=== PATIENT | male | born 1970 | race Caucasian/White ===

== ENCOUNTER → 2016-11-15 | Outpatient (RCR) ==
[2016-07-14 10:50] VITALS: BMI 38.6
--- NOTE | 2016-11-10 11:23 | RS.OPPTEV2 ---
Date of Note: 11/10/16 Visit #: 1 Date of Evaluation: 11/10/16 Payer Source: Workman's Comp Date of Onset/Injury/Change in Status: 10/06/16 Surgery Performed?: Yes Procedure Performed: Biceps tendon repair Treatment Diagnosis: Left elbow pain, Distal biceps tendon partial tear History of Condition/Mechanism of Injury:: Patient reports injurying left arm while moving therapy equipment on 07/14/16. He had to have the distal bicep tendon repaired which was performed 10/06/2016. He was placed in a sling for 4 days after surgery and has only been allowed to perform left elbow flexion. He is having some pain and edema of the left elbow and forearm. Pain is worse in the evenings. His sleep has been only 2-3 hrs per night due to pain in the left forearm. Prior Level of Function.....Patient was independent with: ADL's, Self Care, Work /Vocation, Caregiving, Ambulation/Mobility, Community Integration/Access Functional Limitations: Sleep, Self Care, ADL's, Reaching, Pushing, Pulling, Lifting, Carrying, Community Access/Integration Current Subjective/complaints:: Supination is the worst motion and the inability to sleep. 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 Smoking Status: Never smoker Hx Home Medications: Ibuprofen, Altace, Dyazide,Metformin, Pain Assessment - Pain Description Pain Location: Left elbow and forearm Pain Description: Sharp, Dull, Aching Current Pain Intensity: 1/10 Worst Pain Intensity: 6/10 Functional Outcome Measure UE Functional Index: 40 - G Codes & Severity Modifier G Codes & Modifier: NA Source of G Code score: NA Observation - Observation Inspection: Left antecubital incision healing with scab present and redness around the scab. Handedness: Right - Left Elbow ROM Comments: Left elbow AROM WNL. Supination is slightly limited by pain and tightness. - Left Elbow Strength Left Elbow Extension: 4 Good Left Elbow Flexion: 4 Good Left Forearm Pronation: 4- Good- Left Forearm Supination: 3 Fair Comments: Pain with testing of supination. Resistance was limited. Asic Engineer Strength Left Hand Asic Engineer Strength: 30# Right Hand Asic Engineer Strength: 90# Palpation Palpation Findings: Tenderness (Left volar surface of forearm) Sensation - Sensation Left Upper Extremity: Impaired (He has some numbness but he relates this to his neck which he has had for many yrs. He states his arms have periods of numbness form that situation and he sees no change since the tendon rupture.) Interventions - Exercise/Activities/Manual Therapy Exercises/Activities: Patient was began on yellow theraputty (soft) to be performed 2 minutes initially working up to 5 minutes. He performed several techniques today during PT and had no cramping with the activity. He was educated on signs and symptoms of overuse and instructed to stop if cramping occurs. He verbalized understanding. Manual Therapy: NA HOME EXERCISE PROGRAM: Theraputty exercises. - Charges Total Direct Minutes: 15 Total Treatment Time: 45 Procedures billed for this date of service:: PT Eval (Low) and ther ex Assessment Assessment: Left elbow and forearm pain, limited supination, decreased LUE strength. Patient Education: Education of diagnosis, Body/Joint mechanics, Home Exercise Program, Education of Plan of Care Rehab Potential: Good Short Term Goals Goal #1: Patient independent and compliant with basic HEP. Goal to be met by: 11/25/16 Progress towards Goal:: Progressing Goal #2: Left forearm to demonstrate no observable swelling. Goal to be met by: 11/25/16 Goal #3: Left tray service worker strength 25-30 lbs with minimal discomfort. Goal to be met by: 11/25/16 Goal #4: Left forearm supination WNLs w/o pain. Goal to be met by: 11/25/16 [facility]pc Goals Goal #1: Pt knows HEP and to continue with exercises after D/C from therapy. Goal to be met by: 12/09/16 Goal #2: Pt able to use left UE for all ADL's and functional activities without pain Goal to be met by: 12/09/16 Goal #3: Patient able to sleep w/o left UE pain. Goal to be met by: 12/09/16 Goal #4: Score on UE functional Index improved to 70/80. Goal to be met by: 12/09/16 Plan - Treatment to be Provided Procedures: Therapeutic Exercises, Therapeutic Activity, Manual Therapy, Massage , Patient Education Modalities: Electrical Stimulation, Ultrasound/Phonophoresis, Class IV Laser, Cryotherapy, Hot Packs - Treatment Plan Frequency: 2 X week Duration: 4 weeks ORDER # VISITS AND/OR THROUGH DATE: 12/09/2016 - Treatment Code (1) Decreased tray service worker strength of left hand Comments: M62.81 (2) Forearm pain Qualifiers: Laterality: left Qualified Description: Pain of left forearm Qualifier Code(s): (M79.632) Pain in left forearm
--- NOTE | 2016-11-15 10:05 | RS.OPPTDN ---
Subjective Date of Note: 11/15/16 Visit #: 2 Date of Evaluation: 11/10/16 Payer Source: Workman's Comp Treatment Diagnosis: Left elbow pain, Distal biceps tendon partial tear Current Subjective/complaints:: Reports the pain is a dull ache ,as opposed to sharp pain.He reports doing his HEP,using theraputty also. Pain Assessment - Pain Description Pain Location: Left elbow and forearm Pain Description: Dull, Aching Current Pain Intensity: 1-2/10 - Heat/Cryotherapy Treatment: Hot Pack (20 mins. prior to exercises) Interventions - Exercise/Activities/Manual Therapy Exercises/Activities: 30 mins. total ,including gentle stretches to wrist extensors/flexors,AROM of supination/pronation,isometrics for biceps. Total minutes of Exercise: 30 Manual Therapy: NA Total minutes of Manual Therapy: 0 HOME EXERCISE PROGRAM: Theraputty exercises. - Charges Total Direct Minutes: 30 Total Treatment Time: 50 Procedures billed for this date of service:: hp,ex 2 Assessment: Patient has functional ROM in the L UE,has stretch dsicomfort , especially with pronation/supination at end range.He has good return demo of HEP ,understands to avoid pain as he exercises. Patient Education: Education of diagnosis, Body/Joint mechanics, Home Exercise Program, Home Safety, Activity Modification, Education of Plan of Care Patient demonstrates compliance with HEP?: Yes Short Term Goals Goal #1: Patient independent and compliant with basic HEP. Goal to be met by: 11/25/16 Progress towards Goal:: Progressing Goal #2: Left forearm to demonstrate no observable swelling. Goal to be met by: 11/25/16 Progress towards Goal:: Progressing Goal #3: Left service center assistant strength 25-30 lbs with minimal discomfort. Goal to be met by: 11/25/16 Goal #4: Left forearm supination WNLs w/o pain. Goal to be met by: 11/25/16 [facility] Goals Goal #1: Pt knows HEP and to continue with exercises after D/C from therapy. Goal to be met by: 12/09/16 Goal #2: Pt able to use left UE for all ADL's and functional activities without pain Goal to be met by: 12/09/16 Goal #3: Patient able to sleep w/o left UE pain. Goal to be met by: 12/09/16 Goal #4: Score on UE functional Index improved to 70/80. Goal to be met by: 12/09/16 Plan PLAN OF CARE EXPIRES ON:: 12/09/16 ORDER # VISITS AND/OR THROUGH DATE: 12/09/2016 PLAN: Continue Plan of Care
== END ==
PROVIDERS: ATTEND Orthopaedic Surgery
DX: M79.632 Pain in left forearm (principal); M62.81 Muscle weakness (generalized); Z98.890 Other specified postprocedural states; Y99.0 Civilian activity done for income or pay

== ENCOUNTER 2016-12-08 09:00 | Outpatient (RCR) ==
[2016-07-14 10:50] VITALS: BMI 38.6
--- NOTE | 2016-11-22 09:00 | RS.OPPTDN ---
Subjective Date of Note: 11/17/16 Visit #: 3 Date of Evaluation: 11/10/16 Payer Source: Workman's Comp Treatment Diagnosis: Left elbow pain, Distal biceps tendon partial tear Current Subjective/complaints:: No c/o. Pain Assessment - Pain Description Pain Location: Left elbow and forearm Current Pain Intensity: 1-2/10 Interventions - Exercise/Activities/Manual Therapy Exercises/Activities: 30 mins. total ,including gentle stretches to wrist extensors/flexors,AROM of wrist flex/ext, and supination/pronation with 2# dumbbell.,isometrics for biceps. Total minutes of Exercise: 30 Manual Therapy: NA HOME EXERCISE PROGRAM: Theraputty exercises. - Charges Total Direct Minutes: 30 Total Treatment Time: 50 Procedures billed for this date of service:: hp,ex 2 Assessment: Patient tolerates exercises weel,with minimal pain at available end range of supination/pronation.He fatigues easily with eccentric motions while doing sup/pronation or wrist flexion/extension. Patient Education: Education of diagnosis, Body/Joint mechanics, Home Exercise Program, Home Safety, Activity Modification, Education of Plan of Care Patient demonstrates compliance with HEP?: Yes Short Term Goals Goal #1: Patient independent and compliant with basic HEP. Goal to be met by: 11/25/16 Progress towards Goal:: Progressing Goal #2: Left forearm to demonstrate no observable swelling. Goal to be met by: 11/25/16 Progress towards Goal:: Progressing Goal #3: Left new car get ready mechanic strength 25-30 lbs with minimal discomfort. Goal to be met by: 11/25/16 Goal #4: Left forearm supination WNLs w/o pain. Goal to be met by: 11/25/16 Progress towards Goal:: Progressing Substance Abuse Rn Goals Goal #1: Pt knows HEP and to continue with exercises after D/C from therapy. Goal to be met by: 12/09/16 Progress towards goal: Progressing Goal #2: Pt able to use left UE for all ADL's and functional activities without pain Goal to be met by: 12/09/16 Goal #3: Patient able to sleep w/o left UE pain. Goal to be met by: 12/09/16 Progress towards goal: Progressing Goal #4: Score on UE functional Index improved to 70/80. Goal to be met by: 12/09/16 Plan PLAN OF CARE EXPIRES ON:: 12/09/16 ORDER # VISITS AND/OR THROUGH DATE: 12/09/2016 PLAN: Continue Plan of Care
--- NOTE | 2016-11-22 09:00 | RS.CXNS ---
Date of scheduled appointment: 11/22/16 Type: Cancel Reason for Cancel/NS: Patient called ,is sick today (fever).
--- NOTE | 2016-11-24 11:15 | RS.CXNS ---
Date of scheduled appointment: 11/24/16 Type: Cancel Reason for Cancel/NS: Called,still sick.
--- NOTE | 2016-11-29 10:17 | RS.OPPTDN ---
Subjective Date of Note: 11/29/16 Visit #: 4 Date of Evaluation: 11/10/16 Payer Source: Workman's Comp Treatment Diagnosis: Left elbow pain, Distal biceps tendon partial tear Current Subjective/complaints:: Patient frustrated regarding how weak the L UE feels.Reminded patient he is 2 months post-op,he understands. Pain Assessment - Pain Description Pain Location: Left elbow and forearm Current Pain Intensity: 0 at rest,4 /10 after exercises - Heat/Cryotherapy Treatment: Hot Pack, Cryotherapy (Heat x 15 mins,before,cold x 10 mins. after exercises) Interventions - Exercise/Activities/Manual Therapy Exercises/Activities: 30 mins. total ,including gentle stretches to wrist extensors/flexors,AROM of wrist flex/ext, and supination/pronation with 3# dumbbell.,isometrics for biceps.Attempted 2 reps. of biceps curls with 3# ,but stopped due to discomfort,but not sharp pain. Manual Therapy: NA HOME EXERCISE PROGRAM: Theraputty exercises. - Charges Total Direct Minutes: 25 Total Treatment Time: 50 Procedures billed for this date of service:: hp,ex2,cp Assessment: Patient has pasive ROM WNL,but he fatigues very easily with exercises,has muscle tremors present with eccentric motions.Reminded patient he is only 2 months post-op,and still in the protective phase of his recovery.He si to see Dr. Neri tomorrow for follow-up,and we will treat according his recommendations. Patient Education: Education of diagnosis, Body/Joint mechanics, Home Exercise Program, Home Safety, Activity Modification, Education of Plan of Care Patient demonstrates compliance with HEP?: Yes Short Term Goals Goal #1: Patient independent and compliant with basic HEP. Goal to be met by: 11/25/16 Progress towards Goal:: Partially Met Goal #2: Left forearm to demonstrate no observable swelling. Goal to be met by: 11/25/16 Progress towards Goal:: Partially Met Goal #3: Left reprint sorter strength 25-30 lbs with minimal discomfort. Goal to be met by: 11/25/16 (25-30# with 2 attempts) Progress towards Goal:: Met Goal #4: Left forearm supination WNLs w/o pain. Goal to be met by: 11/25/16 Progress towards Goal:: Progressing Wood Chopper Goals Goal #1: Pt knows HEP and to continue with exercises after D/C from therapy. Goal to be met by: 12/09/16 Progress towards goal: Partially Met Goal #2: Pt able to use left UE for all ADL's and functional activities without pain Goal to be met by: 12/09/16 (weak and dull ache present) Progress towards goal: Progressing Goal #3: Patient able to sleep w/o left UE pain. Goal to be met by: 12/09/16 Progress towards goal: Progressing Goal #4: Score on UE functional Index improved to 70/80. Goal to be met by: 12/09/16 Plan PLAN OF CARE EXPIRES ON:: 12/09/16 ORDER # VISITS AND/OR THROUGH DATE: 12/09/2016 PLAN: Continue Plan of Care
--- NOTE | 2016-12-01 10:09 | RS.OPPTDN ---
Subjective Date of Note: 12/01/16 Visit #: 5 Date of Evaluation: 11/10/16 Payer Source: Workman's Comp Treatment Diagnosis: Left elbow pain, Distal biceps tendon partial tear Current Subjective/complaints:: Patient saw Dr. Neri ,yesterday and has orders to continue PT,progress as tolerated. Pain Assessment - Pain Description Pain Location: Left elbow and forearm Pain Description: Dull, Aching Current Pain Intensity: 0 at rest - Heat/Cryotherapy Treatment: Hot Pack (20 mins. prior to exercises) Interventions - Exercise/Activities/Manual Therapy Exercises/Activities: 25 mins. total ,including gentle stretches to wrist extensors/flexors,AROM of wrist flex/ext, and supination/pronation with 3# dumbbell.,isometrics for biceps. Biceps curls with 2# ,@ 3/15 ,then did one set of 15 reps. with 5 #. Total minutes of Exercise: 25 Manual Therapy: NA Total minutes of Manual Therapy: 0 HOME EXERCISE PROGRAM: Theraputty exercises.PAIN FREE AROM with no more than 5# for biceps curls,will progress as Dr. colbert. - Charges Total Direct Minutes: 25 Total Treatment Time: 45 Procedures billed for this date of service:: hp,ex 2 Assessment: Progressing well in all areas,less intensity and frequency of pain.Tolerates gradual increase with resistive exercises.He has good safety awareness. Patient Education: Education of diagnosis, Body/Joint mechanics, Home Exercise Program, Home Safety, Activity Modification, Education of Plan of Care Patient demonstrates compliance with HEP?: Yes Short Term Goals Goal #1: Patient independent and compliant with basic HEP. Goal to be met by: 11/25/16 Progress towards Goal:: Partially Met Goal #2: Left forearm to demonstrate no observable swelling. Goal to be met by: 11/25/16 Progress towards Goal:: Partially Met Goal #3: Left industrial hygiene technician strength 25-30 lbs with minimal discomfort. Goal to be met by: 11/25/16 (25-30# with 2 attempts) Progress towards Goal:: Met Goal #4: Left forearm supination WNLs w/o pain. Goal to be met by: 11/25/16 Progress towards Goal:: Progressing Stock Blender Goals Goal #1: Pt knows HEP and to continue with exercises after D/C from therapy. Goal to be met by: 12/09/16 Progress towards goal: Partially Met Goal #2: Pt able to use left UE for all ADL's and functional activities without pain Goal to be met by: 12/09/16 (weak and dull ache present) Progress towards goal: Progressing Goal #3: Patient able to sleep w/o left UE pain. Goal to be met by: 12/09/16 Progress towards goal: Progressing Goal #4: Score on UE functional Index improved to 70/80. Goal to be met by: 12/09/16 Plan PLAN OF CARE EXPIRES ON:: 12/09/16 ORDER # VISITS AND/OR THROUGH DATE: 12/09/2016 PLAN: Continue Plan of Care
--- NOTE | 2016-12-06 10:09 | RS.OPPTDN ---
Subjective Date of Note: 12/06/16 Visit #: 6 Date of Evaluation: 11/10/16 Payer Source: Workman's Comp Treatment Diagnosis: Left elbow pain, Distal biceps tendon partial tear Current Subjective/complaints:: Reports doing well,able to tolerate increased resistance for exercises without pain. Pain Assessment - Pain Description Pain Location: Left elbow and forearm Pain Description: Dull, Aching Current Pain Intensity: 0 at rest - Heat/Cryotherapy Treatment: Hot Pack (20 mins. prior to exercises) Interventions - Exercise/Activities/Manual Therapy Exercises/Activities: 20 mins. total ,including gentle stretches to wrist extensors/flexors,AROM of wrist flex/ext, and supination/pronation with 3# dumbbell.,isometrics for biceps. Biceps curls with 5# ,@ 3/15 ,ended with isometrics for biceps. Total minutes of Exercise: 20 Manual Therapy: NA Total minutes of Manual Therapy: 0 HOME EXERCISE PROGRAM: Theraputty exercises.PAIN FREE AROM with no more than 5# for biceps curls,will progress as Dr. colbert. - Charges Total Direct Minutes: 20 Total Treatment Time: 40 Procedures billed for this date of service:: hp,ex 1 Assessment: Patient continues to progress,reports soreness and tightness,but no sharp pain today.He is cautious and compliant to recommendations of joint protection. Patient Education: Body/Joint mechanics, Activity Modification, Education of Plan of Care Patient demonstrates compliance with HEP?: Yes Short Term Goals Goal #1: Patient independent and compliant with basic HEP. Goal to be met by: 11/25/16 Progress towards Goal:: Met Goal #2: Left forearm to demonstrate no observable swelling. Goal to be met by: 11/25/16 Progress towards Goal:: Partially Met Goal #3: Left associate field service engineer strength 25-30 lbs with minimal discomfort. Goal to be met by: 11/25/16 Progress towards Goal:: Met Goal #4: Left forearm supination WNLs w/o pain. Goal to be met by: 11/25/16 Progress towards Goal:: Progressing Returns Processor Goals Goal #1: Pt knows HEP and to continue with exercises after D/C from therapy. Goal to be met by: 12/09/16 Progress towards goal: Partially Met Goal #2: Pt able to use left UE for all ADL's and functional activities without pain Goal to be met by: 12/09/16 (weak and dull ache present) Progress towards goal: Progressing Goal #3: Patient able to sleep w/o left UE pain. Goal to be met by: 12/09/16 Progress towards goal: Progressing Goal #4: Score on UE functional Index improved to 70/80. Goal to be met by: 12/09/16 Plan PLAN OF CARE EXPIRES ON:: 12/09/16 ORDER # VISITS AND/OR THROUGH DATE: 12/09/2016 PLAN: Progress Exercises
--- NOTE | 2016-12-08 10:08 | RS.OPPTDN ---
Subjective Date of Note: 12/08/16 Visit #: 7 Date of Evaluation: 11/10/16 Payer Source: Workman's Comp Treatment Diagnosis: Left elbow pain, Distal biceps tendon partial tear Current Subjective/complaints:: Patient reports tolerating increased resistance exercises better,continues to be cautious and compliant to 's orders. Pain Assessment - Pain Description Pain Location: Left elbow and forearm Pain Description: Dull, Aching Current Pain Intensity: 0 at rest - Heat/Cryotherapy Treatment: Hot Pack (20 mins. prior to exercises) Interventions - Exercise/Activities/Manual Therapy Exercises/Activities: 25 mins. total ,including gentle stretches to wrist extensors/flexors,AROM of wrist flex/ext, and supination/pronation with 4# dumbbell.,isometrics for biceps. Biceps curls with 7.5# ,@ 3/15 . Total minutes of Exercise: 25 Manual Therapy: NA Total minutes of Manual Therapy: 0 HOME EXERCISE PROGRAM: Theraputty exercises.PAIN FREE AROM with no more than 5# for biceps curls,will progress as Dr. colbert. - Charges Total Direct Minutes: 25 Total Treatment Time: 45 Procedures billed for this date of service:: hp,ex 2 Assessment: Progressing well in all areas,improved eccentric control as the biceps strength increases.No report of pain ,only fatigue during treatment. Patient Education: Body/Joint mechanics, Home Exercise Program, Home Safety Patient demonstrates compliance with HEP?: Yes Short Term Goals Goal #1: Patient independent and compliant with basic HEP. Goal to be met by: 11/25/16 Progress towards Goal:: Met Goal #2: Left forearm to demonstrate no observable swelling. Goal to be met by: 11/25/16 Progress towards Goal:: Partially Met Goal #3: Left corporate strategist strength 25-30 lbs with minimal discomfort. Goal to be met by: 11/25/16 Progress towards Goal:: Met Goal #4: Left forearm supination WNLs w/o pain. Goal to be met by: 11/25/16 Progress towards Goal:: Progressing Certified Recreational Therapist Goals Goal #1: Pt knows HEP and to continue with exercises after D/C from therapy. Goal to be met by: 12/09/16 Progress towards goal: Partially Met Goal #2: Pt able to use left UE for all ADL's and functional activities without pain Goal to be met by: 12/09/16 (weak and dull ache present) Progress towards goal: Progressing Goal #3: Patient able to sleep w/o left UE pain. Goal to be met by: 12/09/16 Progress towards goal: Progressing Goal #4: Score on UE functional Index improved to 70/80. Goal to be met by: 12/09/16 Plan PLAN OF CARE EXPIRES ON:: 12/09/16 ORDER # VISITS AND/OR THROUGH DATE: 12/09/2016 PLAN: Continue Plan of Care
--- NOTE | 2016-12-13 15:58 | RS.CXNS ---
Date of scheduled appointment: 12/13/16 Type: Cancel (Unknown)
== END 2016-12-13 ==
PROVIDERS: ATTEND Orthopaedic Surgery
DX: M25.522 Pain in left elbow (principal); Z98.890 Other specified postprocedural states; Y99.0 Civilian activity done for income or pay

== ENCOUNTER 2016-12-23 15:00 | Outpatient (RCR) ==
[2016-07-14 10:50] VITALS: BMI 38.6
--- NOTE | 2016-12-21 16:29 | RS.OPPTDN ---
Subjective Date of Note: 12/21/16 Visit #: 8 Date of Evaluation: 11/10/16 Payer Source: Workman's Comp Treatment Diagnosis: Left elbow pain, Distal biceps tendon partial tear Current Subjective/complaints:: Patient feels he is progressing well,is compliant to protocol and joint protection. Pain Assessment - Pain Description Pain Location: Left elbow and forearm Current Pain Intensity: 0 at rest - Heat/Cryotherapy Treatment: Hot Pack (20 mins. prior to exercises) Interventions - Exercise/Activities/Manual Therapy Exercises/Activities: 30 mins. total ,including gentle stretches to wrist extensors/flexors,AROM of wrist flex/ext, and supination/pronation with 5# dumbbell.3/10 reps biceps curls and overhead lifting with 10 #. Total minutes of Exercise: 30 Manual Therapy: NA HOME EXERCISE PROGRAM: Theraputty exercises.PAIN FREE AROM with no more than 5# for biceps curls,will progress as Dr. colbert. - Charges Total Direct Minutes: 30 Total Treatment Time: 50 Procedures billed for this date of service:: hp,ex 2 Assessment: Patient progressing well,has increased strength in the L UE,but fatigues easily with eccentric motions,with muscle tremors present in the biceps.No sharp pain present with progression of exercises. Patient Education: Education of diagnosis, Body/Joint mechanics, Home Exercise Program, Home Safety, Activity Modification, Education of Plan of Care Patient demonstrates compliance with HEP?: Yes Short Term Goals Goal #1: Patient independent and compliant with basic HEP. Goal to be met by: 11/25/16 Progress towards Goal:: Met Goal #2: Left forearm to demonstrate no observable swelling. Goal to be met by: 11/25/16 Progress towards Goal:: Met Goal #3: Left cavity pump operator strength 25-30 lbs with minimal discomfort. Goal to be met by: 11/25/16 (45# x 2 today) Progress towards Goal:: Met Goal #4: Left forearm supination WNLs w/o pain. Goal to be met by: 11/25/16 Progress towards Goal:: Partially Met Mechanical Developer Prover Goals Goal #1: Pt knows HEP and to continue with exercises after D/C from therapy. Goal to be met by: 12/28/16 Progress towards goal: Met Goal #2: Pt able to use left UE for all ADL's and functional activities without pain Goal to be met by: 12/28/16 (weak and dull ache present) Progress towards goal: Progressing Goal #3: Patient able to sleep w/o left UE pain. Goal to be met by: 12/28/16 Progress towards goal: Progressing Goal #4: Score on UE functional Index improved to 70/80. Goal to be met by: 12/28/16 Plan PLAN OF CARE EXPIRES ON:: 01/06/17 ORDER # VISITS AND/OR THROUGH DATE: 12/09/2016 PLAN: Continue Plan of Care
--- NOTE | 2016-12-23 16:27 | RS.OPPTDN ---
Subjective Date of Note: 12/23/16 Visit #: 9 Date of Evaluation: 11/10/16 Payer Source: Workman's Comp Treatment Diagnosis: Left elbow pain, Distal biceps tendon partial tear Current Subjective/complaints:: No c/o. Pain Assessment - Pain Description Pain Location: Left elbow and forearm Current Pain Intensity: 0 at rest Other Comments regarding Pain:: Dull ache after exercises. - Heat/Cryotherapy Treatment: Hot Pack (20 mins. prior to exercises) Interventions - Exercise/Activities/Manual Therapy Exercises/Activities: 25 mins. total ,including gentle stretches to wrist extensors/flexors,AROM of wrist flex/ext, and supination/pronation with 5# dumbbell./15 reps. biceps curls and overhead lifting with 10 #. Total minutes of Exercise: 25 Manual Therapy: NA Total minutes of Manual Therapy: 0 HOME EXERCISE PROGRAM: OK to progress to 10 # resistance after 12/12/[address] Neri's orders. - Charges Total Direct Minutes: 25 Total Treatment Time: 45 Procedures billed for this date of service:: hp,ex 2 Assessment: Progressing well,only reports fatigue after exercises,minimal tremors present with eccentric motions. Patient Education: Body/Joint mechanics, Home Exercise Program, Home Safety, Education of Plan of Care Patient demonstrates compliance with HEP?: Yes Short Term Goals Goal #1: Patient independent and compliant with basic HEP. Goal to be met by: 11/25/16 Progress towards Goal:: Met Goal #2: Left forearm to demonstrate no observable swelling. Goal to be met by: 11/25/16 Progress towards Goal:: Met Goal #3: Left cook mayonnaise strength 25-30 lbs with minimal discomfort. Goal to be met by: 11/25/16 (45# x 2 today) Progress towards Goal:: Met Goal #4: Left forearm supination WNLs w/o pain. Goal to be met by: 11/25/16 Progress towards Goal:: Partially Met Healthcare Science Specialist Goals Goal #1: Pt knows HEP and to continue with exercises after D/C from therapy. Goal to be met by: 12/28/16 Progress towards goal: Met Goal #2: Pt able to use left UE for all ADL's and functional activities without pain Goal to be met by: 12/28/16 (weak and dull ache present) Progress towards goal: Progressing Goal #3: Patient able to sleep w/o left UE pain. Goal to be met by: 12/28/16 Progress towards goal: Partially Met Goal #4: Score on UE functional Index improved to 70/80. Goal to be met by: 12/28/16 Plan PLAN OF CARE EXPIRES ON:: 01/06/17 ORDER # VISITS AND/OR THROUGH DATE: 01/06/17 PLAN: Progress Exercises
--- NOTE | 2016-12-29 08:18 | RS.QUICKDC ---
Discharge from PT Date of Discharge: 12/29/16 Number of Visits: 9 Reason for Discharge: Spoke with patient ,good report from Dr. Neri yesterday,no further therapy ,returned to work without restrictions.
== END 2017-01-13 ==
PROVIDERS: ATTEND Orthopaedic Surgery
DX: S46.212A Strain of muscle, fascia and tendon of other parts of biceps, left arm, initial encounter (principal); Z98.890 Other specified postprocedural states; Y99.0 Civilian activity done for income or pay

== ENCOUNTER 2017-07-24 07:08 | Outpatient (CLI) ==
[2016-07-14 10:50] VITALS: BMI 38.6
== END 2017-07-24 07:09 | disposition home or self-care (01) ==
LOC: CAR 07:08
PROVIDERS: ATTEND Family Medicine
DX: R40.4 Transient alteration of awareness (principal)
CPT/HCPCS: 93227

== ENCOUNTER 2017-07-25 12:05 | Outpatient (CLI) | payer OTHER ==
[2016-07-14 10:50] VITALS: BMI 38.6
--- NOTE | 2017-07-25 14:03 | US ---
EXAM: Carotid ultrasound HISTORY: Transient altered awareness, transient ischemic attack COMPARISON: 05/26/2014 TECHNIQUE: Carotid ultrasound was performed using frias scale, color, and Doppler imaging was perform ed. FINDINGS: Right carotid: There is mild atherosclerosis without significant visualized area of atherosclerotic narrowing. Peak systolic velocity measurement in the right internal carotid artery is 1.0 meters per second. End-diastolic velocity measurement in the right internal carotid artery is 0.4 meters per s econd. Right internal to common carotid artery peak systolic velocity ratio is 1.3. Flow in the rig ht vertebral artery is antegrade. Left carotid: There is mild atherosclerosis without significant visualized area of atherosclerotic n arrowing. Peak systolic velocity measurement in the left internal carotid artery is 0.5 meters per s econd. End-diastolic velocity measurement in the left internal carotid artery is 0.2 meters per seco nd. Left internal to common carotid artery peak systolic velocity ratio measures 0.5. Flow in the l eft vertebral artery is antegrade. IMPRESSION: 1. Right internal carotid: No hemodynamically significant stenosis 2. Left internal carotid: No hemodynamically significant stenosis
--- NOTE | 2017-07-25 14:28 | HOLTER ---
PATIENT INFORMATION AND COMMENTS Attending Physician: NANCY DAMICO Indications: SYNCOPAL EPISODE __ Patient Medications: JANUVIA, ALTACE, DYAZIDE, SKELAXIN, METFORMIN, IBUPROFEN, PRILOSEC __ Pre-procedure Summary: Protocol: Standard Heart Rate Started: 07/24/17913 Minimum: 47 BPM Weight: 295 LBS Ended: 07/25/17 0900 Maximum: 144 BPM Height: 72" Duration: 24 HOURS Average: 86 BPM _ INTERPRETATIONS/OBSERVATIONS: 1. BASIC RHYTHM: SINUS, RATE 47 BPM TO 140 BPM, AVERAGE 86 BPM 2. INFREQUENT PVC'S AND PAC'S 3. NO ST-T WAVE CHANGES FROM BASELINE 4. NO CORRELATION WITH ACTIVITY LOG MTDD
== END 2017-07-25 12:06 | disposition home or self-care (01) ==
LOC: RAD 12:05
PROVIDERS: ATTEND Family Medicine
DX: R40.4 Transient alteration of awareness (principal)

== ENCOUNTER 2017-07-31 15:03 | Outpatient (CLI) ==
[2016-07-14 10:50] VITALS: BMI 38.6
--- NOTE | 2017-07-31 22:41 | MRI ---
EXAM: Brain MRI without contrast. HISTORY: Transient alteration of awareness. COMPARISON: Carotid artery duplex ultrasound 07/25/2017. TECHNIQUE: Multiplanar, multisequence MR images were acquired of the brain without contrast. FINDINGS: The midline structures are central and the cerebellar tonsils extend to the foramen magnum without overt ectopia. The calvarium has a mildly asymmetric configuration with mild flattening of the right frontal convex curve compared to the left and widening of the transverse diameter of the ca lvarial shape compared to the AP diameter, greatest involving the right cerebral hemisphere. This is probably within normal variation. There is a normal anterior posterior insertion of the falx. The v entricles and sulci are normal in size and configuration. There are no abnormal extra-axial fluid co llections. The brain parenchyma has no restricted diffusion to suggest acute hypoperfusion or infarction. There are faint bilateral FLAIR hyperintensities in the parietal occipital periventricular white matter wh ich is considered normal. There are also a few small T2 hyperintensities in the lateral frontal subc ortical white matter bilaterally and left anterior external capsule compatible with minimal leukomala jace which is nonspecific. There are no heterotopias or migrational anomalies. No abnormal foci of d ark gradient echo signal are present to suggest hemosiderin staining. The corpus callosum is slightl y less elongated than is typical concordant with the mildly shortened AP diameter of the calvarium re lative to the transverse diameter. The pituitary gland is unremarkable. There is minor right hyperostosis frontalis interna. No intraorbital masses are present. Paranasal s inuses, middle ears and mastoids are unremarkable. Flow voids are present in the major intracranial arteries and dural venous sinuses. There is a mild disc bulge at C3-4 and mild spinal stenosis. IMPRESSION: 1. No intracranial mass, hemorrhage or acute cerebral infarct. 2. Minor leukomalacia which is nonspecific.
== END 2017-07-31 15:04 | disposition home or self-care (01) ==
LOC: RAD 15:03
PROVIDERS: ATTEND Family Medicine
DX: R40.4 Transient alteration of awareness (principal); R41.82 Altered mental status, unspecified

== ENCOUNTER 2017-08-09 06:27 | Outpatient (CLI) ==
[2016-07-14 10:50] VITALS: BMI 38.6
--- NOTE | 2017-08-09 09:15 | DI ---
Exam: Cervical spine four views History: Neck pain FINDINGS: Frontal, lateral, odontoid and swimmers projections. There is normal alignment with prese rvation of vertebral body height. Low grade multilevel anterior endplate spondylosis. Relative pres ervation of disc space height. No facet changes are seen. No suspicious bony lesions or acute bony abnormalities. Normal prevertebral soft tissues. Impression: Cervical spine endplate spondylosis projecting anteriorly. No acute abnormalities are s een. Similar appearance on 05/26/2014.
== END 2017-08-09 06:28 | disposition home or self-care (01) ==
LOC: RAD 06:27
PROVIDERS: ATTEND Family Medicine
DX: M54.2 Cervicalgia (principal)

== ENCOUNTER 2017-10-02 15:16 | Outpatient (CLI) ==
[2016-07-14 10:50] VITALS: BMI 38.6
[2017-10-02 15:47] LABS: BILIRUBIN,URINE Negative (NEGATIVE); KETONES,URINE Negative (NEGATIVE); LEUKOCYTE ESTERASE ,URINE Trace (NEGATIVE); NITRITE,URINE Negative (NEGATIVE); PROTEIN,URINE Negative (NEGATIVE); URINE, BLOOD Negative (NEGATIVE)
[2017-10-02 15:48] LABS: BASOPHILS # (AUTO) 0.1 K/uL (0-0.2); EOSINOPHILS # (AUTO) 0.2 K/ul (0.0-0.7); EOSINOPHILS % (AUTO) 1.7 % (0.0-7.0); HEMATOCRIT 44.5 % (42.0-52.0); HEMOGLOBIN 15.9 g/dl (14.0-18.0); IMMATURE GRANULOCYTE % (AUTO) 0.5 % (0.0-5.0); LYMPHOCYTES # (AUTO) 3.5 K/uL (0.60-3.4); LYMPHOCYTES % (AUTO) 30.3 (10.0-50.0); MEAN CORPUSCULAR HEMOGLOBIN 30.7 pg (27.0-31.0); MEAN CORPUSCULAR HGB CONC 35.7 (31.8-35.4); MEAN CORPUSCULAR VOLUME 85.9 fl (80.0-94.0); MONOCYTES # (AUTO) 0.8 K/uL (0.4-2.0); MONOCYTES % (AUTO) 7.3 (0-10); NEUTROPHILS # (AUTO) 6.8 K/ul (2.0-6.9); NEUTROPHILS % (AUTO) 59.2; PLATELET COUNT 273 10^3/uL (140-440); RED BLOOD COUNT 5.18 10^6/ul (4.70-6.10); WHITE BLOOD COUNT 11.43 K/ul (4.2-10.2)
[2017-10-02 15:49] LABS: ADD URINE MICROSCOPIC YES
[2017-10-02 16:11] LABS: ALBUMIN 4.1 g/dL (3.4-5.0); ALBUMIN/GLOBULIN RATIO 1.03; ANION GAP 18.2; BILIRUBIN,TOTAL 1.2 mg/dL (0.00-1.20); BUN/CREATININE RATIO 12.15; CALCIUM 9.7 mg/dL (8.2-10.2); CREATININE 1.81 mg/dL (0.60-1.10); POTASSIUM 4.2 mmol/L (3.5-5.1); TOTAL PROTEIN 8.1 g/dL (6.4-8.2)
--- NOTE | 2017-10-02 16:46 | CT ---
EXAM: CT of the abdomen pelvis without contrast History: Right lower quadrant abdominal pain. Comparison: CT abdomen pelvis 04/25/2016 Technique: Multiplanar CT images through the abdomen pelvis were obtained without the administration of IV contrast Findings: Lung bases are free of consolidation. No acute osseous abnormalities. Moderate degenerat shanna disc disease at L2-L3 with prominent posterior disc osteophyte complex. Enlarged fatty liver. Status post cholecystectomy. Spleen is unremarkable. No peripancreatic infla mmation. Adrenal glands are unremarkable. Postsurgical changes of the right kidney with adjacent fa t stranding. No renal stones and no hydronephrosis. The appendix is within normal limits. No dilate d loops of bowel. Colonic diverticulosis. No bladder wall thickening. No perirectal inflammation. Prostate is not enlarged. No free air and no ascites. No pathologically enlarged lymph nodes. Impression: 1. Normal appendix. 2. Postsurgical changes of the right kidney with adjacent fat stranding which is most likely due to scarring. Right pyelonephritis is not excluded. Correlate clinically and with urinalysis. 3. Colonic diverticulosis. 4. Enlarged fatty liver.
== END 2017-10-02 15:17 | disposition home or self-care (01) ==
LOC: RAD 15:16
PROVIDERS: ATTEND Family Medicine
DX: R10.30 Lower abdominal pain, unspecified (principal)
CPT/HCPCS: 36415; 74176; 80053; 81001; 82150; 83690; 85025

== ENCOUNTER 2017-11-14 05:43 | Emergency (ER) ==
[2017-11-14 05:58] VITALS: BP 143/88; TEMP 98; BMI 40.6
[2017-11-14] MEDS ORDERED: DECADRON 4 MG/ML SDV IM STA (06:18)
[2017-11-14] MEDS ORDERED: TORADOL IM STA (06:18)
--- NOTE | 2017-11-14 06:27 | ED.PDOC ---
General ED Provider: Dr. NANCY DAMICO-ER Chief Complaint: Back Pain Stated Complaint: was lifting boxes at home--injured his back=--noting pain from his back down the left leg--not better with chiropactor care Time Seen by Physician: 05:50 Mode of Arrival: Walk-In Information Source: Patient Exam Limitations: No limitations Primary Care Provider: NANCY DAMICO Nursing and Triage Documentation Reviewed and Agree: Yes Reviewed sepsis parameters & appropriate labs ordered?: Yes System Inflammatory Response Syndrome: Not Applicable Sepsis Protocol: For patient's 13 years and over: Temp is 96.8 and below OR 101 and greater Pulse >90 BPM Resp >20/minute Acutely Altered Mental Status Are patient's symptoms suggestive of a new infection, such as: -Pneumonia -Skin, Soft Tissue -Endocarditis -UTI -Bone, Joint Infection -Implantable Device -Acute Abdominal Infection -Wound Infection -Meningitis -Blood Stream Catheter Infection -Unknown Musculoskeletal Complaint Exam - Back Pain Complaint/Exam Mechanism of Injury: Reports: No known trauma Onset/Duration: several days Symptoms Are: Still present Timing: Constant Initial Severity: Mild Current Severity: Moderate Location: Reports: Discrete Character: Reports: Dull, Aching, Spasmodic Aggravating: Reports: Movements, Lifting, Bending, Walking Alleviating: Reports: None Associated Signs and Symptoms: Reports: Tingling TAD Risk Factors: Reports: Hypertension AAA Risk Factors: Reports: None Epidural Abcess Risk Factors: Reports: None Related Surgical History: Reports: None Focal Tenderness: Yes Paraspinal Muscle Tenderness: Yes Paraspinal Muscle Spasm: Yes Scoliosis: No Lordosis: No Kyphosis: No SLR Test: Right Negative, Left Negative Hip Motion Testing Pain: Right Negative, Left Negative Focal Weakness: Present: None Focal Sensory Loss: Present: None Gait: Present: Normal Differential Diagnoses: Herniated Disk Review of Systems - Review Of Systems Constitutional: Reports: No symptoms Eyes: Reports: No symptoms Ears, Nose, Mouth, Throat: Reports: No symptoms Respiratory: Reports: No symptoms Cardiac: Reports: No symptoms GI: Reports: No symptoms : Reports: No symptoms Musculoskeletal: Reports: Back pain, Muscle pain Skin: Reports: No symptoms Neurological: Reports: No symptoms Endocrine: Reports: No symptoms Hematologic/Lymphatic: Reports: No symptoms All Other Systems: Reviewed and Negative Past Medical History - Past Medical History Previously Healthy: No Endocrine: Reports: DM 2 Cardiovascular: Reports: Hypertension Respiratory: Reports: None Hematological: Reports: None Gastrointestinal: Reports: GERD Genitourinary: Reports: None Neuro/Psych: Reports: None Musculoskeletal: Reports: None Cancer: Reports: None - Surgical History General Surgical History: Reports: Cholecystectomy, Orthopedic - Family History Family History: Reports: Unknown - Social History Smoking Status: Former smoker Hx Substance Use: No Alcohol Screening: Occasionally - Immunizations Tetanus Shot up to Date: Yes Physical Exam - Physical Exam Appearance: Well-appearing, No pain distress, Well-nourished Pain Distress: Moderate Eyes: DANICA, EOMI, Conjunctiva clear ENT: Ears normal, Nose normal, Oropharynx normal Neck: Supple Respiratory: Airway patent, Breath sounds clear, Breath sounds equal, Respirations nonlabored Cardiovascular: RRR, Pulses normal, No rub, No murmur GI/: Soft, Nontender, No masses, Bowel sounds normal, No Organomegaly Musculoskeletal: Normal strength, ROM intact, No edema, No calf tenderness Skin: Warm, Dry, Normal color Neurological: Sensation intact, Motor intact, Reflexes intact, Cranial nerves intact, Alert, Oriented Psychiatric: Affect appropriate, Mood appropriate Critical Care Note - Critical Care Note Total Time (mins): 0 Course - Course Orders, Labs, Meds: Orders Category Date Time Status Dexamethasone 4 mg/ml Inj [Decadron 4 mg/ml Sdv] MEDS 11/14/17 06:18 Discontinued 8 mg IM ONCE STA Ketorolac Tromethamine [Toradol] MEDS 11/14/17 06:18 Discontinued 60 mg IM ONCE STA Medications Discontinued Medications Generic Name Dose Route Start Last Admin Trade Name Freq PRN Reason Stop Dose Admin Dexamethasone Sodium Phosphate 8 mg 11/14/17 06:18 Decadron 4 Mg/Ml Sdv IM 11/14/17 06:19 ONCE STA Ketorolac Tromethamine 60 mg 11/14/17 06:18 Toradol IM 11/14/17 06:19 ONCE STA Vital Signs: Temp Pulse Resp BP Pulse Ox 11/14/17 05:45 98 F 103 H 20 143/88 H 95 Departure - Departure Time of Disposition: 06:27 Disposition: HOME SELF-CARE Discharge Problem: Sciatica Qualifiers: Laterality: left Qualified Code(s): M54.32 - Sciatica, left side Instructions: Lumbar Radiculopathy (ED), Sciatica (ED) Condition: Good Pt referred to PMD for follow-up: Yes IPMP verified?: No Additional Instructions: mdrol dose pack--percocet 7.5mg q 4hrs prn pain #15---talk to rosalee at office this am to obtain mri of the back Allergies/Adverse Reactions: Allergies hydromorphone HCl [From Dilaudid] Adverse Reaction (Verified 07/14/16 10:53) Penicillins Adverse Reaction (Verified 07/14/16 10:53) ILLYSON Adverse Reaction (Uncoded 07/14/16 10:53) Home Medications: Ambulatory Orders Omeprazole [Prilosec] 40 mg PO DAILY 05/30/13 Psyllium Seed [Metamucil] 1 packet PO DAILY 05/30/13 Ramipril [Altace] 10 mg PO DAILY 05/30/13 Triamterene/Hydrochlorothiazid [Dyazide] 1 cap PO DAILY 05/30/13 Ibuprofen 600 mg PO DIRECTED PRN 04/13/15 Metaxalone [Skelaxin] 800 mg PO DIRECTED PRN 04/13/15 Metformin HCl [Glucophage] 500 mg PO BIDWM 04/13/15 Sitagliptin Phosphate [Januvia] 100 mg PO DAILY 04/25/16 Disposition Discussed With: Patient
== END 2017-11-14 06:55 | disposition home or self-care (01) ==
LOC: ED 05:43
DX: M54.32 Sciatica, left side (principal); X50.9XXA Other and unspecified overexertion or strenuous movements or postures, initial encounter
CPT/HCPCS: 96372; 99283

== ENCOUNTER 2017-11-17 07:12 | Outpatient (CLI) ==
--- NOTE | 2017-11-17 09:52 | MRI ---
EXAM: Lumbar spine MRI without contrast. HISTORY: Left sciatica. COMPARISON: CT abdomen and pelvis 10/02/2017. TECHNIQUE: Multiplanar, multisequence MR images were acquired lumbar spine without contrast. FINDINGS: Conus medullaris ends at T12-L1 and has normal signal intensity. Canal diameter is develo pmentally narrow and there is epidural lipomatosis. Five non-rib bearing lumbar vertebra are present . There is minor thoracolumbar scoliosis, convex right at L1-2 and convex left in the mid to lower l umbar spine. The lumbar vertebra are normal in height and intrinsic bone marrow signal. Ventral and lateral osteophytes are present in the lumbar spine and there is mild endplate irregularity with mil d disc space narrowing disc desiccation at L1-2 and L2-3. Irregular concavity of the endplates is pr esent at L5-S1 which also has disc desiccation. The partially visualized liver, spleen and kidneys are unremarkable. There are no paravertebral mass es. T12-L1: The intervertebral disc is normal. L1-2: There is a minor diffuse spondylotic disc bulge and and a moderately large central and left pa racentral disc extrusion with 1 cm proximal migration that effaces the left anterior subarachnoid spa ce. Minor right and mild left facet arthropathy and mild bilateral ligamentum flavum hypertrophy is present. There is moderately severe central canal stenosis, marked left lateral recess stenosis with encroachment on the left L2 nerve roots and mild left neural foraminal stenosis. AP diameter of the thecal sac is 4.1 mm. L2-3: There is a mild to moderate diffuse spondylotic disc bulge with posterior endplate osteophytes and a moderate right posterolateral disc protrusion that extends into the medial right neural forame n. This effaces the right lateral recess with encroachment on the right L3 nerve roots. Mild bilate ral hypertrophic facet arthropathy and ligamentum flavum hypertrophy is present. In this patient wit h a developmentally narrow canal and dorsal epidural lipomatosis, there is mild to moderate central c anal stenosis and mild left and mild to moderate right neural foraminal stenosis. AP diameter of the thecal sac is 5.8 mm. L3-4: There is a minor disc bulge that minimally narrows the inferior neural foramina bilaterally an d mild bilateral hypertrophic facet arthropathy and ligamentum flavum hypertrophy, greater on the lef t. Dorsal epidural lipomatosis is present and there is mild central canal stenosis and mild bilatera l neural foraminal stenosis. AP diameter of the thecal sac is 9 mm. L4-5: There is a minor disc bulge with marginal osteophytes that is asymmetric to the right which na rrows the inferior right neural foramen and encroaches on the exiting right L4 nerve. There is also a probable tiny medial left foraminal disc protrusion (sagittal T2 image #10). Bilateral hypertrophi c facet arthropathy and ligamentum flavum hypertrophy is present. This causes mild central canal doris nosi and mild to moderate bilateral foraminal stenosis, greater on the right. AP diameter of the the roosevelt sac is 8.7 mm. L5-S1: There is a minor disc bulge with marginal osteophytes that is asymmetric posteriorly and to t he left. There is a more focal disc bulge or tiny left posterolateral/lateral disc protrusion that m inimally effaces the left lateral recess with possible encroachment on the left S1 nerve and narrows the inferior medial left neural foramen. Minor bilateral facet arthropathy and mild ligamentum flavu m hypertrophy is present. There is mild to moderate left and mild right neural foraminal stenosis. There is tapering of the thecal sac and epidural lipomatosis. AP diameter of the thecal sac is 7.7 m m. IMPRESSION: 1. Moderately large central and left paracentral disc extrusion L1-2 which causes marked left latera l recess stenosis with encroachment on the left L2 nerve roots. 2. Moderate right posterolateral disc protrusion L2-3 that encroaches on the right L3 nerve roots. 3. Mild to moderate lumbar degenerative spondylosis with moderately severe L1-2, mild to moderate L2 -3 and mild L3-4, L4-5 and L5-S1 central canal stenosis. 4. Multilevel foraminal stenosis.
== END 2017-11-17 07:13 | disposition home or self-care (01) ==
LOC: RAD 07:12
PROVIDERS: ATTEND Family Medicine
DX: M54.32 Sciatica, left side (principal)

== ENCOUNTER 2017-12-01 06:14 | Outpatient (CLI) | END 2017-12-01 06:15 | disposition home or self-care (01) | LOC: LAB 06:14 | PROVIDERS: ATTEND Urology | DX: N28.89 Other specified disorders of kidney and ureter (principal) | CPT/HCPCS: 36415; 82565; 84520 ==

== ENCOUNTER 2018-12-27 06:17 | Outpatient (CLI) | END 2018-12-27 06:18 | disposition home or self-care (01) | LOC: LAB 06:17 | PROVIDERS: ATTEND Family Medicine | DX: R79.9 Abnormal finding of blood chemistry, unspecified (principal) | CPT/HCPCS: 36415; 85025 ==